=== PATIENT | female | born 1985 | race Caucasian/White ===

== ENCOUNTER 2017-04-24 23:43 | Emergency (ER) | payer BC, MEDICAID, OTHER ==
[2017-04-25 00:07] LABS: Urine Bilirubin Negative (NEGATIVE); Urine Blood Negative /ul (NEGATIVE); Urine Ketone Negative (NEGATIVE); Urine Nitrite Negative (NEGATIVE); Urine Protein Negative (NEGATIVE); Urine Specific Gravity 1.025 SP.GR. (1.005-1.010); Urine Urobilinogen Normal (NORMAL)
[2017-04-25 00:15] LABS: Urine Appearance Clear; Urine Bacteria TRACE; Urine Color Yellow; Urine RBC None Seen /hpf (0-5); Urine WBC TRACE /hpf (0-5)
[2017-04-25] MEDS ORDERED: ACETAMINOPHEN 500 MG TABLET PO ONE (00:29)
[2017-04-25] MEDS ORDERED: MAG HYDROX/ALUMINUM HYD/SIMETH 30 ML UDC PO ONE (00:29)
--- NOTE | 2017-04-25 00:31 | ERNOTE ---
Abdominal HPI - Narrative Date of Service: 04/25/17 - General Chief Complaint: Abdominal Pain Time Seen by Provider: 04/24/17 23:57 Source: patient Exam Limitations: no limitations - Immun/Allergies/Home Medications Immunizatons: IMMUNIZATION HX Immunizations Up to Date Yes History of Influenza Vaccine Yes Allergies/Adverse Reactions: Allergies sumatriptan [From Imitrex] Allergy (Severe, Verified 07/01/14 10:44) Other pt states she has stroke like symptoms morphine Adverse Reaction (Mild, Verified 07/01/14 10:43) Itching per pt this medication caused itching, a side effect of medication. Home Medications: HOME MEDICATIONS Ibuprofen [Motrin] 200 - 800 mg PO Q6H PRN #100 tablet 07/03/14 [Last Taken Unknown] - History of Present Illness Narrative: 31-year-old that notes the acute onset of the right lower quadrant pain at 1830 hours, now it is diffusely present and considered to be mild. Activity seems to make the pain worse. Seems to make it better. She denies any fevers, chills , or vomiting. There was nausea earlier but this is subsequently resolved. She denies any straining when there is a bowel movement. Denies any dysuria or urinary frequency. He is not had similar pain in the past. No medications were taken prior to being seen in the emergency department. Timing: constant Quality: burning Activities at Onset: none Modifying Factors - (Improves): Present: other - decreasing activity Modifying Factors - (Worsens): Present: other - increased activity Associated Symptoms: Present: denies symptoms Prior Abdominal Problems: Present: none Review of Systems - Review of Systems Constitutional: Present: no symptoms reported EYE: Present: no symptoms reported ENT: Present: no symptoms reported Respiratory: Present: no symptoms reported Cardiology: Present: no symptoms reported Gastrointestinal/Abdominal: Present: See HPI Genitourinary: Present: no symptoms reported Musculoskeletal: Present: no symptoms reported Neurological: Present: no symptoms reported Endocrine: Present: no symptoms reported Hematologic/Lymphatic: Present: no symptoms reported All Other Systems: All systems neg except as marked - Patient's Past Medical History Patient History - Medical: No pertinent hx Patient History - Cardiac/Respiratory: No pertinent hx Patient History - Cancer: No Hx of Cancer Patient History - Surgical Procedures: , Tubal Ligation Patient History - Other: None LMP (females 10-50): this week - Social History Living Situations: significant other Abuse History: No History of abuse Psych History: No pertinent hx Smoking Status: Current every day smoker Have you smoked in the past 12 months: Yes Do you dip or chew tobacco: No Alcohol Use: none Drug Use: none - Immunizations Immunizations Up to Date: Yes History of Influenza Vaccine: Yes Physical Exam - Physical Exam General Appearance: Present: no apparent distress Head Exam: Present: normal inspection Eye Exam: Normal inspection: bilateral Ears, Nose, Throat: Present: normal ENT inspection Neck: Present: normal inspection Respiratory: Present: no respiratory distress Cardiovascular/Chest: Present: regular rate, rhythm Gastrointestinal/Abdominal: Present: nontender, nondistended, soft, no organomegaly. 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 - Vital Signs Patient's Vital Signs:: I have reviewed the patient's vital signs. Vital Signs: Vital Signs 04/24/17 23:48 Temperature 37.1 C Pulse Rate 80 Respiratory 16 Rate Blood Pressure 130/73 O2 Sat by Pulse 100 Oximetry - X-Ray X-Ray #1 X-Ray: abdomen Interpretation: Interp. by me X-ray Comments: Large stool burden in the ascending colon. - Progress/Reassessment Chief Complaint: Abdominal Pain Progress:: Unchanged Progress Note-Subjective: 04/25/17 01:07 Appears unconcerned and comfortable. Departure - Departure Clinical Impression: Abdominal pain Disposition: Home self-care Condition: Fair Instructions: Abdominal Pain, Adult, [id number] Print Language: Swiss Additional Instructions: Drink the entire bottle of magnesium citrate. Eat more fiber foods.
[2017-04-25 00:33] LABS: Hematocrit 36.6 % (37.0-47.0); Hemoglobin 12.5 gm/dL (12.5-16.0); Mean Cell Volume 86.3 fl (78-100); Mean Corpuscular Hemoglobin 29.5 pg (27-31); Mean Corpuscular Hgb Conc 34.2 g/dl (32-36); Mean Platelet Volume 10.2 fl (6.0-9.5); Neutrophil # 6.4 K/mm3 (1.3-6.0); Neutrophil % 56.3 % (42-75.0); Platelet Count 289 K/mm3 (150-450); Red Blood Count 4.24 M/mm3 (4.2-5.4); Red Cell Distribution Width 13.6 % (11.5-14.0); White Blood Count 11.3 K/mm3 (4.0-10.5)
[2017-04-25 00:48] LABS: Albumin * 3.6 gm/dl (3.4-5.0); Anion Gap 15.2 mmol/L (6.8-13.8); BUN/Creatinine Ratio 10.4 (9.0-21.6); Bilirubin, Total 0.1 mg/dL (0.0-1.1); Carbon Dioxide 23.6 mmol/L (24-32.6); Potassium 3.8 mmol/L (3.4-4.6); Total Protein 7.1 gm/dL (6.2-8.2)
[2017-04-25] MEDS ORDERED: MAGNESIUM CITRATE 300 ML BTL PO ONE (01:06)
[2017-04-25 01:23] VITALS: BP 114/66
== END 2017-04-25 01:21 | disposition home or self-care (01) ==
LOC: ER 23:43
DX: R10.9 Unspecified abdominal pain (principal); F17.200 Nicotine dependence, unspecified, uncomplicated